=== PATIENT | male | born 1935 | race Caucasian/White ===

== ENCOUNTER 2017-09-20 07:49 | Inpatient (IN) | payer MEDICARE ==
[2017-09-20] MEDS ORDERED: NITROGLYCERIN SL TABS 0.4 MG TAB SUBLINGUAL STA ×3 (08:12)
[2017-09-20] MEDS ORDERED: ASPIRIN 81 MG PO STA (08:12)
--- NOTE | 2017-09-20 08:17 | ED ---
General Adult HPI - General Chief complaint: Chest Pain Stated complaint: Chest Pain Time Seen by Provider: 09/20/17 07:55 Source: patient, RN notes reviewed Mode of arrival: wheelchair Limitations: no limitations - History of Present Illness Initial comments: Patient is a pleasant 82-year-old male presenting to the emergency Department with chest discomfort. Onset of symptoms was yesterday however symptoms are very mild yesterday. Symptoms were worse around 4 AM today. Discomfort is currently 6/10. Discomfort is described as pressure in the chest. Patient states his right arm does feel a little bit funny. Patient has some mild associated dyspnea and mild nausea. No diaphoresis. Patient does have a history of heart attack years ago with somewhat similar symptoms. Patient does not exert himself much today however noticed no difference with movement. - Related Data Home Medications Medication Instructions Recorded Confirmed Aspirin EC [Ecotrin] 81 mg PO HS 05/31/14 09/20/17 Atorvastatin [Lipitor] 80 mg PO HS 05/31/14 09/20/17 Cholecalciferol [Vitamin D3] 2,000 unit PO DAILY 05/31/14 09/20/17 Omeprazole 20 mg PO DAILY 09/20/17 09/20/17 Allergies Allergy/AdvReac Type Severity Reaction Status Date / Time No Known Allergies Allergy Verified 09/20/17 08:33 Review of Systems ROS Statement: Those systems with pertinent positive or pertinent negative responses have been documented in the HPI. ROS Other: All systems not noted in ROS Statement are negative. Constitutional: Denies: fever Eyes: Denies: eye pain ENT: Denies: ear pain Respiratory: Denies: cough Cardiovascular: Reports: chest pain Endocrine: Denies: fatigue Gastrointestinal: Denies: abdominal pain Genitourinary: Denies: dysuria Musculoskeletal: Denies: back pain Skin: Denies: rash Neurological: Denies: weakness Past Medical History Past Medical History: Coronary Artery Disease (CAD), Cancer, Hyperlipidemia, Myocardial Infarction ([place]) Additional Past Medical History / Comment(s): prostate ca lung ca osteoporsis History of Any Multi-Drug Resistant Organisms: None Reported Past Surgical History: Heart Catheterization With Stent, Hernia Repair, Prostate Surgery Additional Past Surgical History / Comment(s): lung Past Psychological History: No Psychological Hx Reported Smoking Status: Former smoker Past Alcohol Use History: None Reported Past Drug Use History: None Reported General Exam Limitations: no limitations General appearance: alert, in no apparent distress Head exam: Present: atraumatic Eye exam: Present: normal appearance, PERRL ENT exam: Present: normal oropharynx Neck exam: Present: normal inspection Respiratory exam: Present: normal lung sounds bilaterally. Absent: chest wall tenderness Cardiovascular Exam: Present: regular rate, normal rhythm Expanded Peripheral pulses: 2+: Radial (R), Radial (L), Posterior Tibialis (R), Posterior Tibialis (L) GI/Abdominal exam: Present: soft. Absent: tenderness Extremities exam: Present: normal inspection. Absent: pedal edema, calf tenderness Neurological exam: Present: alert Psychiatric exam: Present: normal affect, normal mood Skin exam: Present: normal color Course Vital Signs 09/20/17 09/20/17 09/20/17 07:58 08:25 08:36 Temperature 97.7 F Pulse Rate 65 60 56 L Respiratory 16 18 18 Rate Blood Pressure 188/76 164/79 126/58 O2 Sat by Pulse 98 100 100 Oximetry - Reevaluation(s) Reevaluation #1: 09/20/17 09:19 Patient reexamined and near symptom-free following one nitroglycerin. Patient states his discomfort is less than 1. Patient and family are updated on results and plan. Case was discussed with practitioner vincenzo, who will consult with Dr. Haider. Dr. Pandya has been paged for admission for Dr. tate. EKG Findings - EKG Comments: EKG Findings:: Sinus bradycardia 55. MD 186. QRS 150. QT 494. QTC 472. Right axis. Right bundle branch block. No acute ST change. Medical Decision Making - Lab Data Result diagrams: 09/20/17 08:06 09/20/17 08:06 Lab Results 09/20/17 09/20/17 09/20/17 Range/Units 08:06 08:06 08:06 WBC 6.1 (3.8-10.6) k/uL RBC 3.88 L (4.30-5.90) m/uL Hgb 12.6 L (13.0-17.5) gm/dL Hct 37.6 L (39.0-53.0) % MCV 97.0 (80.0-100.0) fL MCH 32.5 (25.0-35.0) pg MCHC 33.6 (31.0-37.0) g/dL RDW 15.0 (11.5-15.5) % Plt Count 108 L (150-450) k/uL Neutrophils % 80 % Lymphocytes % 11 % Monocytes % 6 % Eosinophils % 1 % Basophils % 0 % Neutrophils # 4.9 (1.3-7.7) k/uL Lymphocytes # 0.7 L (1.0-4.8) k/uL Monocytes # 0.4 (0-1.0) k/uL Eosinophils # 0.0 (0-0.7) k/uL Basophils # 0.0 (0-0.2) k/uL PT (9.0-12.0) sec INR (<1.2) APTT (22.0-30.0) sec Sodium 141 (137-145) mmol/L Potassium 4.6 (3.5-5.1) mmol/L Chloride 104 (98-107) mmol/L Carbon Dioxide 28 (22-30) mmol/L Anion Gap 9 mmol/L BUN 15 (9-20) mg/dL Creatinine 0.85 (0.66-1.25) mg/dL Est GFR (MDRD) Af Amer >60 (>60 ml/min/1.73 sqM) Est GFR (MDRD) Non-Af >60 (>60 ml/min/1.73 sqM) Glucose 124 H (74-99) mg/dL Calcium 9.7 (8.4-10.2) mg/dL Magnesium 1.6 (1.6-2.3) mg/dL Total Bilirubin 1.0 (0.2-1.3) mg/dL AST 28 (17-59) U/L ALT 34 (21-72) U/L Alkaline Phosphatase 80 (38-126) U/L Total Creatine Kinase 98 (55-170) U/L CK-MB (CK-2) 5.4 H* (0.0-2.4) ng/mL CK-MB (CK-2) Rel Index 5.5 Troponin I 0.855 H* (0.000-0.034) ng/mL Total Protein 6.9 (6.3-8.2) g/dL Albumin 4.0 (3.5-5.0) g/dL 09/20/17 Range/Units 08:06 WBC (3.8-10.6) k/uL RBC (4.30-5.90) m/uL Hgb (13.0-17.5) gm/dL Hct (39.0-53.0) % MCV (80.0-100.0) fL MCH (25.0-35.0) pg MCHC (31.0-37.0) g/dL RDW (11.5-15.5) % Plt Count (150-450) k/uL Neutrophils % % Lymphocytes % % Monocytes % % Eosinophils % % Basophils % % Neutrophils # (1.3-7.7) k/uL Lymphocytes # (1.0-4.8) k/uL Monocytes # (0-1.0) k/uL Eosinophils # (0-0.7) k/uL Basophils # (0-0.2) k/uL PT 10.1 (9.0-12.0) sec INR 1.0 (<1.2) APTT 23.8 (22.0-30.0) sec Sodium (137-145) mmol/L Potassium (3.5-5.1) mmol/L Chloride (98-107) mmol/L Carbon Dioxide (22-30) mmol/L Anion Gap mmol/L BUN (9-20) mg/dL Creatinine (0.66-1.25) mg/dL Est GFR (MDRD) Af Amer (>60 ml/min/1.73 sqM) Est GFR (MDRD) Non-Af (>60 ml/min/1.73 sqM) Glucose (74-99) mg/dL Calcium (8.4-10.2) mg/dL Magnesium (1.6-2.3) mg/dL Total Bilirubin (0.2-1.3) mg/dL AST (17-59) U/L ALT (21-72) U/L Alkaline Phosphatase (38-126) U/L Total Creatine Kinase (55-170) U/L CK-MB (CK-2) (0.0-2.4) ng/mL CK-MB (CK-2) Rel Index Troponin I (0.000-0.034) ng/mL Total Protein (6.3-8.2) g/dL Albumin (3.5-5.0) g/dL Critical Care Time Critical Care Time: Yes Total Critical Care Time: 32 Disposition Clinical Impression: NSTEMI (non-ST elevation myocardial infarction) Disposition: ADMITTED IP TO THIS HOSP Condition: Serious Referrals: Jina Mcknight MD [Primary Care Provider] - 1-2 days Decision Time: 09:20
[2017-09-20 08:24] LABS: Basophils % (A) 0 %; CH 32.6; CHCM 33.8; Eosinophils % (A) 1 %; HCT 37.6 % (39.0-53.0); HDW 2.85; HGB 12.6 gm/dL (13.0-17.5); Luc % (Auto) 2; Lymphocytes # (A) 0.7 k/uL (1.0-4.8); Lymphocytes % (A) 11 %; MCH 32.5 pg (25.0-35.0); MCHC 33.6 g/dL (31.0-37.0); Mean Platelet Volume 7.5; Monocytes # (A) 0.4 k/uL (0-1.0); Monocytes % (A) 6 %; Neutrophils # (A) 4.9 k/uL (1.3-7.7); Neutrophils % (A) 80 %; RBC 3.88 m/uL (4.30-5.90); WBC 6.1 k/uL (3.8-10.6); WBC (Perox) 6.47
--- NOTE | 2017-09-20 08:26 | XR ---
EXAMINATION TYPE: XR chest 2V DATE OF EXAM: 09/20/2017 COMPARISON: 12/15/2011 INDICATION: Chest pain, chest pressure x24 hours TECHNIQUE: Frontal and lateral views of the chest are obtained. FINDINGS: The heart size is normal. The pulmonary vasculature is normal. The lungs are clear. There is a small surgical clip in the upper mediastinum. EKG leads overlie the chest. IMPRESSION: 1. No acute pulmonary process.
[2017-09-20 08:36] LABS: ALT 34 U/L (21-72); AST 28 U/L (17-59); Alkaline Phosphatase 80 U/L (38-126); Anion Gap 9 mmol/L; Blood Urea Nitrogen 15 mg/dL (9-20); Calcium 9.7 mg/dL (8.4-10.2); Carbon Dioxide 28 mmol/L (22-30); Chloride 104 mmol/L (98-107); Glucose 124 mg/dL (74-99); Magnesium 1.6 mg/dL (1.6-2.3); Non-African American GFR(MDRD) >60 (>60 ml/min/1.73 sqM); Potassium 4.6 mmol/L (3.5-5.1); Sodium 141 mmol/L (137-145); Total Protein 6.9 g/dL (6.3-8.2)
[2017-09-20 08:46] LABS: Partial Thromboplastin Time 23.8 sec (22.0-30.0); Prothrombin Time 10.1 sec (9.0-12.0)
[2017-09-20 09:11] LABS: Creatine Kinase MB 5.4 ng/mL (0.0-2.4); Troponin I 0.855 ng/mL (0.000-0.034)
[2017-09-20] MEDS ORDERED: HEPARIN SODIUM,PORCINE 5,000 UNIT/ML 1 ML VIAL IV PRN (09:12)
[2017-09-20] MEDS ORDERED: HEPARIN SODIUM,PORCINE 5,000 UNIT/ML 1 ML VIAL IV ONE (09:12)
[2017-09-20] MEDS ORDERED: NITROGLYCERIN SL TABS 0.4 MG TAB SUBLINGUAL PRN (09:16)
[2017-09-20] MEDS: HEPARIN SODIUM,PORCINE/D5W PMX 25,000 UNIT in DEXTROSE/WATER 1 500ML.BAG IV SCH (09:26)
--- NOTE | 2017-09-20 10:50 | ECHOF ---
Referral Reason:nstemi MEASUREMENTS -------- HEIGHT: 152.4 cm WEIGHT: 73.5 kg BP: IVSd: 0.9 cm (0.6 - 1.1) LVIDd: 4.9 cm (3.9 - 5.3) LVPWd: 1.0 cm (0.6 - 1.1) IVSs: 1.1 cm LVIDs: 3.5 cm LVPWs: 1.1 cm LA Diam: 2.9 cm (2.7 - 3.8) LAESV Index (A-L): 31.59 ml/m MV EXCURSION: 23.490 mm (> 18.000) MV EF SLOPE: 104 mm/s (70 - 150) EPSS: 0.7 cm MV E Clinton: 0.88 m/s MV DecT: 319 ms MV A [place]: 1.26 m/s MV E/A Ratio: 0.70 RAP: 5.00 mmHg RVSP: 41.55 mmHg FINDINGS -------- Sinus rhythm. This was a technically adequate study. The left ventricular size is normal. There is mild concentric left ventricular hypertrophy. Overa ll left ventricular systolic function is normal with, an EF between 55 - 60 %. The right ventricle is normal in size. LA is moderately dilated 34-39 ml/m2 The right atrial size is normal. There is mild aortic valve sclerosis. The mitral valve leaflets are mildly thickened. Moderate mitral regurgitation is present. There i s mild mitral valve prolapse. Mild tricuspid regurgitation present. There is mild pulmonary hypertension. The right ventricular systolic pressure, as measured by Doppler, is 41.55mmHg. Trace/mild (physiologic) pulmonic regurgitation. The aortic root size is normal. There is no pericardial effusion. CONCLUSIONS -------- 1. Sinus rhythm. 2. This was a technically adequate study. 3. There is mild concentric left ventricular hypertrophy. 4. Overall left ventricular systolic function is normal with, an EF between 55 - 60 %. 5. LA is moderately dilated 34-39 ml/m2 6. There is mild aortic valve sclerosis. 7. The mitral valve leaflets are mildly thickened. 8. Moderate mitral regurgitation is present. 9. There is mild mitral valve prolapse. 10. Mild tricuspid regurgitation present. 11. There is mild pulmonary hypertension. 12. Trace/mild (physiologic) pulmonic regurgitation. 13. The aortic root size is normal. 14. There is no pericardial effusion. SILO MAN: Katherin Carpenter RDCS
--- NOTE | 2017-09-20 12:08 | P.CRDCN ---
History of Present Illness Consult date: 09/20/17 Chief complaint: Chest discomfort History of present illness: This is an 10-year-old gentleman who sees Dr. Parker as an outpatient with a history of coronary artery disease and prior stenting was performed out of the town at the clinic on in 2003 with unknown details at this point, dyslipidemia, carotid disease and status post left carotid endarterectomy, presented to the hospital complaining of chest discomfort. He was in his usual state of health until this morning when he woke up from sleep complaining of chest discomfort as a pressure across the chest without any radiations to the arm or neck or shoulders but it was associated with shortness of breath. No sweating. No dizziness or lightheadedness. And no syncope. The discomfort lasted until the patient arrived to the emergency room where he was given nitroglycerin with improvement in the symptoms. Since then he has been pain-free. The EKG showed sinus rhythm with RBBB. The first set of cardiac enzyme came in to be slightly abnormal with abnormal CK-MB and troponin. When the patient arrived to the emergency room he was hypertensive and bradycardic. He is not on any blood pressure medications at home. Currently the patient is on aspirin as well as heparin. I will continue that. I am going to add VIV inhibitor to the current medical treatment. Follow-up with the serial cardiac enzymes and follow-up with the echocardiogram. Past Medical History Past Medical History: Coronary Artery Disease (CAD), Cancer, Hyperlipidemia, Myocardial Infarction ([place]) Additional Past Medical History / Comment(s): Prostate cancer with radiation and hormone treatment, esophageal cancer with surgery, R upper lobe lung cancer with surgery, L carotid artery disease-with surgery, osteoporosis in the past, mild mitral insufficiency/bacterial endocarditis. Last Myocardial Infarction Date:: 2001 History of Any Multi-Drug Resistant Organisms: None Reported Past Surgical History: Heart Catheterization With Stent, Hernia Repair, Prostate Surgery Additional Past Surgical History / Comment(s): 12/29/02 PCI with [address] Morgan in [facility], 2002 L caratid endartectomy, 2009 R upper lobectomy, 2010 esophagectomy at [facility], 2010 hernia repair, EGD/colonoscopy, bilateral cataract removal with lens implants. Past Anesthesia/Blood Transfusion Reactions: No Reported Reaction Date of Last Stent Placement:: 2001 Smoking Status: Former smoker - Past Family History Mother Family Medical History: No Reported History Additional Family Medical History / Comment(s): Mother was healthy and lived to be 92 yrs old. Father Additional Family Medical History / Comment(s): Father left home when pt was 6 yrs old. Pt does know that father was an alcoholic and at the age of 59yrs. Medications and Allergies Home Medications Medication Instructions Recorded Confirmed Type Aspirin EC [Ecotrin] 81 mg PO HS 05/31/14 09/20/17 History Atorvastatin [Lipitor] 80 mg PO HS 05/31/14 09/20/17 History Cholecalciferol [Vitamin D3] 2,000 unit PO DAILY 05/31/14 09/20/17 History Omeprazole 20 mg PO DAILY 09/20/17 09/20/17 History Allergies Allergy/AdvReac Type Severity Reaction Status Date / Time No Known Allergies Allergy Verified 09/20/17 08:33 Physical Exam Vitals: Vital Signs Temp Pulse Pulse Resp BP BP Pulse Ox 09/20/17 11:24 56 L 18 09/20/17 10:00 97.4 F L 56 L 18 161/77 100 09/20/17 09:38 98 F 57 L 18 142/88 100 09/20/17 08:36 56 L 18 126/58 100 09/20/17 08:25 60 18 164/79 100 09/20/17 07:58 97.7 F 65 16 188/76 98 Intake and Output 09/19/17 09/20/17 09/20/17 22:59 06:59 14:59 Other: Weight 73.482 kg Patient Weight 09/21/17 06:59 Weight 73.482 kg - Constitutional General appearance: no acute distress - Respiratory Respiratory: bilateral: CTA - Cardiovascular Rhythm: regular Heart sounds: normal: S1, S2 Results 09/20/17 08:06 09/20/17 08:06 Cardiac Enzymes 09/20/17 09/20/17 Range/Units 08:06 08:06 AST 28 (17-59) U/L CK-MB (CK-2) 5.4 H* (0.0-2.4) ng/mL Troponin I 0.855 H* (0.000-0.034) ng/mL Coagulation 09/20/17 Range/Units 08:06 PT 10.1 (9.0-12.0) sec APTT 23.8 (22.0-30.0) sec CBC 09/20/17 Range/Units 08:06 WBC 6.1 (3.8-10.6) k/uL RBC 3.88 L (4.30-5.90) m/uL Hgb 12.6 L (13.0-17.5) gm/dL Hct 37.6 L (39.0-53.0) % Plt Count 108 L (150-450) k/uL Comprehensive Metabolic Panel 09/20/17 Range/Units 08:06 Sodium 141 (137-145) mmol/L Potassium 4.6 (3.5-5.1) mmol/L Chloride 104 (98-107) mmol/L Carbon Dioxide 28 (22-30) mmol/L BUN 15 (9-20) mg/dL Creatinine 0.85 (0.66-1.25) mg/dL Glucose 124 H (74-99) mg/dL Calcium 9.7 (8.4-10.2) mg/dL AST 28 (17-59) U/L ALT 34 (21-72) U/L Alkaline Phosphatase 80 (38-126) U/L Total Protein 6.9 (6.3-8.2) g/dL Albumin 4.0 (3.5-5.0) g/dL Current Medications Generic Name Dose Route Start Last Admin Trade Name Williamq PRN Reason Stop Dose Admin Aspirin 325 mg 09/21/17 09:00 Aspirin PO DAILY [facility] Heparin Sodium (Porcine) 0 unit 09/20/17 09:12 Heparin IV PER PROTOCOL PRN Low PTT Protocol Heparin Sodium/Dextrose 25,000 500 mls @ 17.63 mls/hr 09/20/17 09:15 09:26 unit/ IV Solution IV 12 units/kg/hr .Q24H NASREEN 17.63 mls/hr Protocol Administration 12 UNITS/KG/HR Nitroglycerin 1 inch 09/20/17 12:00 Nitro-Bid Oint TOPICAL Q6HR [facility] Nitroglycerin 0.4 mg 09/20/17 09:16 Nitrostat SUBLINGUAL Q5M PRN Chest Pain Intake and Output 09/19/17 09/20/17 09/20/17 22:59 06:59 14:59 Other: Weight 73.482 kg Patient Weight 09/21/17 06:59 Weight 73.482 kg 09/20/17 08:06 09/20/17 08:06 Assessment and Plan Assessment: This is a pleasant 82-year-old gentleman was known to have CAD and prior stenting with unknown details, and dyslipidemia, presented to the hospital with a chest discomfort and ruled in for acute non-STEMI. I will follow-up with the serial cardiac enzymes and follow-up with the echocardiogram. Add VIV inhibitor to the current medical treatment. Continue the aspirin and heparin for now. If the serial Cardiac enzymes are trending up I will consider proceeding with a heart catheterization by Dr. Parker.
[2017-09-20] MEDS: NITROGLYCERIN OINT 1 INCH/GM PACKET TOPICAL SCH ×3 (12:36→23:37)
--- NOTE | 2017-09-20 13:41 | P.HPIM ---
History of Present Illness H&P Date: 09/20/17 Chief Complaint: chest pain this is a 82-year-old gentleman with past medical history noted below significant for coronary artery disease with prior stent placement in 2003 who presented to the emergency room with worsening chest pain. Patient said that his pain started all of a sudden when he woke up this morning. He described the pain as pressure-like across his chest without radiation to the neck or arm. He said the pain was 8 out of 10 in severity. He was concerned and decided to come to the emergency room. In the emergency room, 12-lead EKG showed no acute ischemic changes. Initial troponin was elevated at 0.85. Patient was given a sublingual nitro that resolved his pain. He is currently admitted to telemetry floor and was seen and evaluated by cardiology. He denies any chest pain at this time. Review of Systems Review of system: 14 points review of systems were obtained and were negative except to what were mentioned in the HPI. 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 Last Myocardial Infarction Date:: 2001 History of Any Multi-Drug Resistant Organisms: None Reported Past Surgical History: Heart Catheterization With Stent, Hernia Repair, Prostate Surgery Additional Past Surgical History / Comment(s): 12/29/02 PCI with [address] Morgan in [facility], 2002 L caratid endartectomy, 2009 R upper lobectomy, 2010 esophagectomy at [facility], 2010 hernia repair, EGD/colonoscopy, bilateral cataract removal with lens implants. Past Anesthesia/Blood Transfusion Reactions: No Reported Reaction Date of Last Stent Placement:: 2001 Smoking Status: Former smoker - Past Family History Mother Family Medical History: No Reported History Additional Family Medical History / Comment(s): Mother was healthy and lived to be 92 yrs old. Father Additional Family Medical History / Comment(s): Father left home when pt was 6 yrs old. Pt does know that father was an alcoholic and at the age of 59yrs. Medications and Allergies Home Medications Medication Instructions Recorded Confirmed Type Aspirin EC [Ecotrin] 81 mg PO HS 05/31/14 09/20/17 History Atorvastatin [Lipitor] 80 mg PO HS 05/31/14 09/20/17 History Cholecalciferol [Vitamin D3] 2,000 unit PO DAILY 05/31/14 09/20/17 History Omeprazole 20 mg PO DAILY 09/20/17 09/20/17 History Allergies Allergy/AdvReac Type Severity Reaction Status Date / Time No Known Allergies Allergy Verified 09/20/17 08:33 Physical Exam Vitals: Vital Signs Temp Pulse Pulse Resp BP BP Pulse Ox 09/20/17 11:24 56 L 18 09/20/17 10:00 97.4 F L 56 L 18 161/77 100 09/20/17 09:38 98 F 57 L 18 142/88 100 09/20/17 08:36 56 L 18 126/58 100 09/20/17 08:25 60 18 164/79 100 09/20/17 07:58 97.7 F 65 16 188/76 98 Intake and Output 09/19/17 09/20/17 09/20/17 22:59 06:59 14:59 Output Total 400 Balance -400 Output: Urine 400 Other: Weight 73.482 kg Patient Weight 09/21/17 06:59 Weight 73.482 kg General: The patient is awake and alert, in no distress Eye: there is normal conjunctiva bilaterally. Neck: The neck is supple, there is no JVD. Cardiovascular: Normal S1-S2, no S3-S4, no murmurs. Respiratory: Lungs clear to auscultation bilaterally Gastrointestinal: Abdomen is soft, nontender Musculoskeletal: There is no pedal edema. Neurological:. Speech is normal. Skin: Skin is warm and dry Results CBC & Chem 7: 09/20/17 08:06 09/20/17 08:06 Labs: Abnormal Lab Results - Last 24 Hours (Table) 09/20/17 09/20/17 09/20/17 Range/Units 08:06 08:06 08:06 RBC 3.88 L (4.30-5.90) m/uL Hgb 12.6 L (13.0-17.5) gm/dL Hct 37.6 L (39.0-53.0) % Plt Count 108 L (150-450) k/uL Lymphocytes # 0.7 L (1.0-4.8) k/uL Glucose 124 H (74-99) mg/dL CK-MB (CK-2) 5.4 H* (0.0-2.4) ng/mL Troponin I 0.855 H* (0.000-0.034) ng/mL Thrombosis Risk Factor Assmnt - Choose All That Apply Any of the Below Risk Factors Present?: Yes Each Factor Represents 1 point: Acute MD Other Risk Factors: Yes Each Risk Factor Represents 2 Points: Malignancy Each Risk Factor Represents 3 Points: Age 75 years or older Other congenital or acquired thrombophilia - If yes, enter type in comment: No Thrombosis Risk Factor Assessment Total Risk Factor Score: 6 Thrombosis Risk Factor Assessment Level: High Risk Assessment and Plan Assessment: 1. Non-ST elevation [place] 2. Sinus bradycardia with known underlying right bundle branch block 3. Essential hypertension 4. Mixed hyperlipidemia Today, I reviewed his medication list and lab work results. Continue medical management with aspirin, IV heparin, Lipitor, and lisinopril.no beta [place] at this time given bradycardia. Echocardiogram showed preserved ejection fraction of 55-60%. No significant valvular abnormalities or wall motion abnormalities. Awaiting repeat troponin level and further recommendation by cardiology.
[2017-09-20 16:11] LABS: Creatine Kinase MB 6.8 ng/mL (0.0-2.4); Troponin I 1.18 ng/mL (0.000-0.034)
[2017-09-20] MEDS: ATORVASTATIN 80 MG TAB PO SCH (20:17)
[2017-09-20 21:33] LABS: Creatine Kinase MB 5.1 ng/mL (0.0-2.4); Troponin I 0.955 ng/mL (0.000-0.034)
[2017-09-21] MEDS: NITROGLYCERIN OINT 1 INCH/GM PACKET TOPICAL SCH ×3 (05:12→17:26)
[2017-09-21] MEDS: PANTOPRAZOLE 40 MG TABLET PO SCH (06:11)
[2017-09-21 06:30] LABS: Basophils % (A) 1 %; CH 33.1; CHCM 34.3; Eosinophils # (A) 0.1 k/uL (0-0.7); Eosinophils % (A) 1 %; HCT 36.1 % (39.0-53.0); HDW 3.05; HGB 12.3 gm/dL (13.0-17.5); Luc # (Auto) 0.07; Luc % (Auto) 2; Lymphocytes # (A) 0.7 k/uL (1.0-4.8); Lymphocytes % (A) 15 %; MCH 32.9 pg (25.0-35.0); MCHC 33.9 g/dL (31.0-37.0); Mean Platelet Volume 7.7; Monocytes # (A) 0.4 k/uL (0-1.0); Monocytes % (A) 7 %; Neutrophils # (A) 3.7 k/uL (1.3-7.7); Neutrophils % (A) 75 %; RBC 3.72 m/uL (4.30-5.90); WBC 4.9 k/uL (3.8-10.6)
[2017-09-21 06:37] LABS: INR 1.1 (<1.2); Partial Thromboplastin Time 43.5 sec (22.0-30.0); Prothrombin Time 10.8 sec (9.0-12.0)
[2017-09-21 06:49] LABS: Manual Review Performed
[2017-09-21 07:07] LABS: Cholesterol 134 mg/dL (<200); HDL Cholesterol 75 mg/dL (40-60)
[2017-09-21] MEDS ORDERED: NITROGLYCERIN SL TABS 0.4 MG TAB SUBLINGUAL PRN (07:39)
[2017-09-21] MEDS ORDERED: ALPRAZolam 0.25 MG TAB PO PRN (07:39)
[2017-09-21] MEDS ORDERED: ALPRAZolam 0.5 MG TAB PO PRN (07:39)
[2017-09-21] MEDS ORDERED: ASPIRIN 325 MG TAB PO STA (07:39)
[2017-09-21] MEDS ORDERED: SODIUM CHLORIDE 0.9% 1,000 ML in EMPTY BAG 1 BAG IV ONE (07:39)
[2017-09-21] MEDS ORDERED: ATORVASTATIN 80 MG TAB PO STA (07:39)
[2017-09-21] MEDS: LISINOPRIL 5 MG TAB PO SCH (07:57)
[2017-09-21] MEDS: CHOLECALCIFEROL 1,000 UNIT TAB PO SCH (07:57)
[2017-09-21] MEDS ORDERED: IV FLUID CONTINUATION 1,000 ML IV ONE (08:27)
[2017-09-21] MEDS ORDERED: diphenhydrAMINE 50 MG/ML 1 ML VIAL ONE (08:42)
[2017-09-21] MEDS ORDERED: fentaNYL (PF) 50 MCG/ML 2 ML AMP ONE (08:46)
[2017-09-21] MEDS ORDERED: fentaNYL (PF) 50 MCG/ML 2 ML AMP IVP ONE (08:47)
[2017-09-21] MEDS ORDERED: LIDOCAINE 2% INJ 20 MG/ML SQ ONE (08:49)
[2017-09-21] MEDS ORDERED: ASPIRIN 325 MG TAB PO SCH (09:00)
[2017-09-21] MEDS ORDERED: IOHEXOL 350 MG/ML 125ML BOTTLE INJ ONE (09:16)
[2017-09-21] MEDS ORDERED: RX INFO: IV CONTRAST WAS GIVEN 1 EACH MISC MISCELLANE PRN (10:02)
[2017-09-21] MEDS: SODIUM CHLORIDE 0.9% 1,000 ML IV SCH (10:15)
--- NOTE | 2017-09-21 13:28 | P.PN ---
Subjective Progress Note Date: 09/21/17 Patient denies any chest pain today. He underwent left heart catheterization that was reported unremarkable. Objective - Vital Signs Vital signs: Vital Signs Temp 97 F L 09/21/17 08:00 Pulse 65 09/21/17 10:47 Resp 16 09/21/17 10:47 BP 114/67 09/21/17 10:47 Pulse Ox 98 09/21/17 10:47 Intake & Output 09/20/17 09/21/17 09/21/17 18:59 06:59 18:59 Intake Total 376.694 75 Output Total 500 475 450 Balance -500 -98.306 -375 Weight 73.482 kg 68 kg Intake: IV 75 Intake, IV Titration 376.694 Amount Heparin Sodium,Porcine/ 376.694 D5w Pmx 25,000 unit In Dextrose/Water 1 500ml. bag @ 12 UNITS/KG/HR 17. 63 mls/hr IV .Q24H NASRE[facility] Rx #:[id number] Oral 0 Output: Urine 500 475 450 Other: Voiding Method Urinal Toilet Urinal Urinal # Voids 1 - Exam General: The patient is awake and alert, in no distress Eye: there is normal conjunctiva bilaterally. Neck: The neck is supple, there is no JVD. Cardiovascular: Normal S1-S2, no S3-S4, no murmurs. Respiratory: Lungs clear to auscultation bilaterally Gastrointestinal: Abdomen is soft, nontender Musculoskeletal: There is no pedal edema. Neurological:. Speech is normal. Skin: Skin is warm and dry - Labs CBC & Chem 7: 09/21/17 06:05 09/20/17 08:06 Labs: Abnormal Lab Results - Last 24 Hours (Table) 09/20/17 09/20/17 09/20/17 Range/Units 15:16 15:16 20:33 RBC (4.30-5.90) m/uL Hgb (13.0-17.5) gm/dL Hct (39.0-53.0) % Plt Count (150-450) k/uL Lymphocytes # (1.0-4.8) k/uL APTT 54.9 H (22.0-30.0) sec CK-MB (CK-2) 6.8 H* 5.1 H* (0.0-2.4) ng/mL Troponin I 1.180 H* 0.955 H* (0.000-0.034) ng/mL HDL Cholesterol (40-60) mg/dL 09/21/17 09/21/17 09/21/17 Range/Units 06:05 06:05 06:05 RBC 3.72 L (4.30-5.90) m/uL Hgb 12.3 L (13.0-17.5) gm/dL Hct 36.1 L (39.0-53.0) % Plt Count 99 L (150-450) k/uL Lymphocytes # 0.7 L (1.0-4.8) k/uL APTT 43.5 H (22.0-30.0) sec CK-MB (CK-2) (0.0-2.4) ng/mL Troponin I (0.000-0.034) ng/mL HDL Cholesterol 75 H (40-60) mg/dL Assessment and Plan Assessment: 1. Non-ST elevation [place] 2. Sinus bradycardia with known underlying right bundle branch block 3. Essential hypertension 4. Mixed hyperlipidemia Today, I reviewed his medication list and lab work results. Continue medical management with aspirin, Lipitor, and lisinopril.no beta berlin at this time given bradycardia. Echocardiogram showed preserved ejection fraction of 55-60% . No significant valvular abnormalities or wall motion abnormalities. Patient underwent left heart catheterization showing no significant coronary artery disease awaiting formal report. appreciate cardiology recommendations. Continue telemetry monitoring. Anticipate discharge home tomorrow.
[2017-09-21] MEDS: HEPARIN SODIUM,PORCINE/D5W PMX 25,000 UNIT in DEXTROSE/WATER 1 500ML.BAG IV SCH (14:34)
[2017-09-21] MEDS: ATORVASTATIN 80 MG TAB PO SCH (20:08)
[2017-09-21] MEDS ORDERED: ASPIRIN 81 MG PO SCH (21:00)
[2017-09-22] MEDS: NITROGLYCERIN OINT 1 INCH/GM PACKET TOPICAL SCH ×2 (00:19→05:06)
[2017-09-22] MEDS: SODIUM CHLORIDE 0.9% 1,000 ML IV SCH (00:21)
[2017-09-22] MEDS: PANTOPRAZOLE 40 MG TABLET PO SCH (06:30)
[2017-09-22 06:36] LABS: Basophils % (A) 1 %; CHCM 34.2; Eosinophils # (A) 0.1 k/uL (0-0.7); Eosinophils % (A) 3 %; HCT 35.4 % (39.0-53.0); HDW 3.03; HGB 11.8 gm/dL (13.0-17.5); Luc # (Auto) 0.07; Luc % (Auto) 2; Lymphocytes # (A) 0.7 k/uL (1.0-4.8); Lymphocytes % (A) 16 %; MCH 32.3 pg (25.0-35.0); MCHC 33.3 g/dL (31.0-37.0); MCV 97.2 fL (80.0-100.0); Mean Platelet Volume 7.1; Monocytes # (A) 0.4 k/uL (0-1.0); Monocytes % (A) 9 %; Neutrophils # (A) 3.1 k/uL (1.3-7.7); Neutrophils % (A) 70 %; RBC 3.65 m/uL (4.30-5.90); WBC 4.4 k/uL (3.8-10.6); WBC (Perox) 4.46
[2017-09-22 06:39] LABS: Prothrombin Time 10.5 sec (9.0-12.0)
[2017-09-22 06:44] LABS: Anion Gap 6 mmol/L; Blood Urea Nitrogen 14 mg/dL (9-20); Calcium 9.1 mg/dL (8.4-10.2); Carbon Dioxide 27 mmol/L (22-30); Chloride 108 mmol/L (98-107); Glucose 102 mg/dL (74-99); Non-African American GFR(MDRD) >60 (>60 ml/min/1.73 sqM); Potassium 4.4 mmol/L (3.5-5.1); Sodium 141 mmol/L (137-145)
[2017-09-22 08:35] VITALS: RESP 16
[2017-09-22] MEDS: HEPARIN SODIUM,PORCINE/D5W PMX 25,000 UNIT in DEXTROSE/WATER 1 500ML.BAG IV SCH (08:39)
[2017-09-22] MEDS: LISINOPRIL 5 MG TAB PO SCH (08:40)
[2017-09-22] MEDS: CHOLECALCIFEROL 1,000 UNIT TAB PO SCH (08:40)
--- NOTE | 2017-09-22 11:04 | P.PN ---
Subjective Progress Note Date: 09/22/17 Principal diagnosis: Chest pain This pleasant 82-year-old gentleman who follows regularly with Dr. Murcia as an outpatient, he has a known history of coronary artery disease with prior stent placement, hyperlipidemia, carotid artery disease, presented to the hospital with symptoms of chest discomfort and ruled in for non-Q-wave myocardial infarction. Echocardiogram with Doppler study was performed which revealed an ejection fraction of 55-60%, moderate mitral regurgitation is also present. Patient did undergo cardiac catheterization yesterday by Dr. Parker which did not reveal any significant obstructive coronary artery disease. He was seen and examined this morning, denies any chest pain, breathing overall has been stable. Blood pressure 124/56, heart rate in the 50s. Hemoglobin 11.8 , potassium 4.4, BUN 14, creatinine 0.6. Objective - Vital Signs Vital signs: Vital Signs Temp 97.6 F 09/22/17 08:00 Pulse 71 09/22/17 08:00 Resp 16 09/22/17 08:00 BP 124/55 09/22/17 08:00 Pulse Ox 98 09/22/17 08:00 Intake & Output 09/21/17 09/22/17 09/22/17 18:59 06:59 18:59 Intake Total 75 600 200 Output Total 750 Balance -675 600 200 Weight 71 kg Intake: IV 75 Oral 600 200 Output: Urine 750 Other: Voiding Method Urinal Urinal # Voids 1 1 0 - Exam PHYSICAL EXAMINATION: HEENT: Head is atraumatic, normocephalic. Pupils equal, round. Neck is supple. There is no elevated jugular venous pressure. HEART EXAMINATION: Heart S1 S2 1 systolic murmur is heard CHEST EXAMINATION: Lungs are clear to auscultation and precussion. No chest wall tenderness is noted on palpation or with deep breathing. ABDOMEN: Soft, nontender. Bowel sounds are heard. No organomegaly noted. Right groin soft, no evidence of any hematoma. EXTREMITIES: 2+ peripheral pulses with no evidence of peripheral edema and no calf tenderness noted]. NEUROLOGIC [patient is awake, alert and oriented -3.] . - Labs CBC & Chem 7: 09/22/17 06:04 09/22/17 06:04 Labs: Abnormal Lab Results - Last 24 Hours (Table) 09/22/17 09/22/17 Range/Units 06:04 06:04 RBC 3.65 L (4.30-5.90) m/uL Hgb 11.8 L (13.0-17.5) gm/dL Hct 35.4 L (39.0-53.0) % Plt Count 105 L (150-450) k/uL Lymphocytes # 0.7 L (1.0-4.8) k/uL Chloride 108 H (98-107) mmol/L Glucose 102 H (74-99) mg/dL Assessment and Plan Plan: Assessment and plan #1 Non Q wave myocardial infarction, status post cardiac catheterization which revealed nonobstructive coronary artery disease. Echocardiogram with Doppler study was performed which revealed a normal left ventricular systolic function with moderate mitral regurgitation. #2 known history of coronary artery disease with prior stent placement #3 hyperlipidemia #4 history of carotid artery disease Plan Patient may be able to be discharged home today from cardiology's perspective. He is not currently on a beta berlin because of bradycardia. A follow-up appointment will be made with Dr. Parker in the office post discharge. He will be discharged home on aspirin 81 mg daily, Lipitor 80 mg daily and lisinopril 5 mg daily, DNP note has been reviewed, I agree with a documented findings and plan of care. Patient was seen and examined.
[2017-09-22 11:21] VITALS: BP 131/61; PULSE 64; TEMP 96.8
--- NOTE | 2017-09-22 12:06 | P.DS ---
Providers Date of admission: 09/20/17 09:16 Expected date of discharge: 09/22/17 Attending physician: Marlene Luis Consults: 09/20/17 09:16 Consult Physician Urgent Consulting Provider: Chip Haider Consult Reason/Comments: nstemi Do you want consulting provider notified?: Already Contacted Primary care physician: Jina Mcknight [facility] Course: 1. Non-ST elevation [place] 2. Sinus bradycardia with known underlying right bundle branch block 3. Essential hypertension 4. Mixed hyperlipidemia Patient was seen and evaluated by cardiology. He underwent left heart catheterization with nonobstructive coronary artery disease. Plan to continue medical management. Echocardiogram showed preserved ejection fraction of 55-60% . No significant valvular abnormalities or wall motion abnormalities. Not a candidate for beta berlin given bradycardia. Patient will be discharged home in a stable condition. Patient Condition at Discharge: Fair Plan - Discharge Summary Discharge Rx Participant: No New Discharge Prescriptions: New Lisinopril [Zestril] 5 mg PO DAILY #30 tab Nitroglycerin Sl Tabs [Nitrostat] 0.4 mg SUBLINGUAL Q5M PRN #25 tab PRN Reason: Chest Pain Continue Cholecalciferol [Vitamin D3] 2,000 unit PO DAILY Aspirin EC [Ecotrin Low Dose] 81 mg PO HS Atorvastatin [Lipitor] 80 mg PO HS Omeprazole 20 mg PO DAILY Discharge Medication List Aspirin EC [Ecotrin Low Dose] 81 mg PO HS 05/31/14 [History] Atorvastatin [Lipitor] 80 mg PO HS 05/31/14 [History] Cholecalciferol [Vitamin D3] 2,000 unit PO DAILY 05/31/14 [History] Omeprazole 20 mg PO DAILY 09/20/17 [History] Lisinopril [Zestril] 5 mg PO DAILY #30 tab 09/22/17 [Rx] Nitroglycerin Sl Tabs [Nitrostat] 0.4 mg SUBLINGUAL Q5M PRN #25 tab 09/22/17 [Rx ] Follow up Appointment(s)/Referral(s): Jina Mcknight MD [Primary Care Provider] - 09/27/17 2:15 pm Hussein Parker MD [STAFF PHYSICIAN] - 09/29/17 10:45 am Patient Instructions/Handouts: *Surgery [facility] - After Heart Catheterization - Cancer Genetics Assistant Instructions, Heart Healthy Diet (DC), Bradycardia (DC) Discharge Disposition: HOME SELF-CARE
--- NOTE | 2017-09-25 12:47 | CC ---
CARDIAC CATHETERIZATION REPORT INDICATION: [id number] elevation MS. PROCEDURE NOTE: After obtaining informed consent, left heart catheterization and coronary angiogram are performed via the right femoral artery using standard Srinivas catheters. The patient tolerated the procedure well without any immediate complications. FINDINGS: HEMODYNAMICS: Left ventricular end-diastolic pressure is 16 mm. There is no significant gradient across the aortic valve. LEFT VENTRICULOGRAM: Left ventriculogram was not performed. ANGIOGRAPHIC DATA: 1. Left main coronary artery appears calcified with a mild atherosclerotic plaque, divides into left anterior descending coronary artery and circumflex coronary artery. 2. Circumflex coronary artery is normal. 3. LAD shows a mild nonobstructive CAD in its midportion. 4. The right coronary artery is a large dominant vessel that was stented previously and the stent appears patent. 5. CONCLUSIONS: 1. Patent stent within the right coronary artery. 2. Mild nonobstructive disease involving left anterior descending. 3. Heavily calcified coronaries including the left main. PLAN: I reviewed angiographic data with the patient and the plan at this stage is to treat him with optimal medical therapy. MMODL / IJN: [id number] /
== END 2017-09-22 12:47 | disposition home or self-care (01) | DRG 282 ==
LOC: EC 07:49 → 6SEL 09:16
PROVIDERS: ADMIT Internal Medicine; ATTEND Internal Medicine
PROC: 4A023N7 Measurement of Cardiac Sampling and Pressure, Left Heart, Percutaneous Approach (ICD-10-PCS; principal; 2017-09-20)
PROC: B2111ZZ Fluoroscopy of Multiple Coronary Arteries using Low Osmolar Contrast (ICD-10-PCS; principal; 2017-09-20)
DX: I21.4 Non-ST elevation (NSTEMI) myocardial infarction (principal); I34.0 Nonrheumatic mitral (valve) insufficiency; I45.10 Unspecified right bundle-branch block; I10 Essential (primary) hypertension; E78.2 Mixed hyperlipidemia; I25.10 Atherosclerotic heart disease of native coronary artery without angina pectoris; M81.0 Age-related osteoporosis without current pathological fracture; Z79.82 Long term (current) use of aspirin; Z79.899 Other long term (current) drug therapy; Z81.1 Family history of alcohol abuse and dependence; Z85.01 Personal history of malignant neoplasm of esophagus; Z85.118 Personal history of other malignant neoplasm of bronchus and lung; Z85.46 Personal history of malignant neoplasm of prostate; Z87.891 Personal history of nicotine dependence; Z95.5 Presence of coronary angioplasty implant and graft; Z96.1 Presence of intraocular lens; Z98.41 Cataract extraction status, right eye; Z98.42 Cataract extraction status, left eye
CPT/HCPCS: 36415; 71020; 80048; 80053; 80061; 82550; 82553; 83036; 83735; 84484; 85025; 85610; 85730; 93005; 93306; 93458; 96365; 96376; 99291

== ENCOUNTER → 2019-06-12 | Outpatient (CLI) | payer MEDICARE ==
--- NOTE | 2019-06-12 10:23 | XR ---
EXAMINATION TYPE: XR chest 2V DATE OF EXAM: 06/12/2019 COMPARISON: NONE HISTORY: History of right upper lobectomy in 2010 for lung cancer. Weakness for 6 months. TECHNIQUE: Frontal and lateral views of the chest are obtained. FINDINGS: Postsurgical change of a right upper lobectomy is seen, similar to the prior of 09/20/2017. Strand-like bibasilar atelectasis is also noted. Calcific left apical pleural-parenchymal scarring. Remainder the lungs are well aerated. Cardiomediastinal silhouette is within normal limits. No acute osseous pathology seen. Pulmonary hyperinflation with flattening of the diaphragms suggests underlyin g COPD. Moderate hiatal hernia is noted. IMPRESSION: 1. Postsurgical change of a right upper lobectomy. 2. Strand-like bibasilar atelectasis and underlying COPD. 3. Moderate hiatal hernia.
== END | disposition home or self-care (01) ==
LOC: RADXRMAIN 09:17
PROVIDERS: ATTEND Family Medicine
DX: C34.90 Malignant neoplasm of unspecified part of unspecified bronchus or lung (principal); J98.11 Atelectasis; J44.9 Chronic obstructive pulmonary disease, unspecified; K44.9 Diaphragmatic hernia without obstruction or gangrene; Z90.2 Acquired absence of lung [part of]; Z98.890 Other specified postprocedural states
CPT/HCPCS: 71046

== ENCOUNTER 2021-06-09 08:54 | Day surgery (SDC) | payer MEDICARE ==
[~2021-06-09 08:54] MED LIST: LACTATED RINGERS 1,000 ML IV SCH
[2021-06-09 10:25] VITALS: TEMP 97.4
[2021-06-09] MEDS ORDERED: LIDOCAINE 1% (10MG/ML) FOR IV START INTRADERMA ONE (10:25)
[2021-06-09] MEDS ORDERED: LIDOCAINE 1% INJ 10MG/ML (20 ML MDV) ONE (10:46)
[2021-06-09] MEDS ORDERED: PROPOFOL 10 MG/ML 20 ML VIAL IV ONE (10:46)
--- NOTE | 2021-06-09 10:55 | P.GSHP ---
History of Present Illness H&P Date: 06/09/21 Chief Complaint: Anemia, screening 85-year-old male here today for upper and lower endoscopy. Patient with diagnosis of anemia. No bowel complaints. Patient with previous weight loss. Patient has personal history of previous cancer and underwent esophagectomy in the past. Past Medical History Past Medical History: Coronary Artery Disease (CAD), Cancer, GERD/Reflux, Hyperlipidemia, Hypertension, Myocardial Infarction (DC) Additional Past Medical History / Comment(s): Prostate cancer with radiation and hormone treatment, esophageal cancer with surgery, R upper lobe lung cancer with surgery, L carotid artery disease-with surgery, osteoporosis in the past, mild mitral insufficiency/bacterial endocarditis. Last Myocardial Infarction Date:: 2001 History of Any Multi-Drug Resistant Organisms: None Reported Past Surgical History: Heart Catheterization, Heart Catheterization With Stent, Hernia Repair, Prostate Surgery Additional Past Surgical History / Comment(s): 12/29/02 PCI with [address] Morgan in [facility], 2002 L carotid endartectomy, 2009 R upper lobectomy, 2010 esophagectomy at [facility], 2010 hernia repair with mesh, EGD/colonoscopy, bilateral cataract removal with lens implants. Past Anesthesia/Blood Transfusion Reactions: No Reported Reaction Date of Last Stent Placement:: 2001 Smoking Status: Former smoker - Past Family History Mother Family Medical History: No Reported History Additional Family Medical History / Comment(s): Mother was healthy and lived to be 92 yrs old. Father Additional Family Medical History / Comment(s): Father left home when pt was 6 yrs old. Pt does know that father was an alcoholic and at the age of 59yrs. Medications and Allergies Home Medications Medication Instructions Recorded Confirmed Type Aspirin EC [Ecotrin Low Dose] 81 mg PO HS 05/31/14 06/09/21 History Atorvastatin [Lipitor] 80 mg PO HS 05/31/14 06/09/21 History Cholecalciferol [Vitamin D3 (25 2,000 unit PO DAILY 05/31/14 06/09/21 History Mcg = 1000 Iu)] Omeprazole 20 mg PO QAM 09/20/17 06/09/21 History Vitc/E/Zinc/Copper/Lutein/Zeax 1 each PO DAILY 06/05/21 06/09/21 History [Icaps Areds2 Tablet] lisinopriL [Zestril] 5 mg PO HS 06/05/21 06/09/21 History Allergies Allergy/AdvReac Type Severity Reaction Status Date / Time No Known Allergies Allergy Verified 06/09/21 10:22 Surgical - Exam Vital Signs Temp Pulse Resp BP Pulse Ox 97.4 F L 77 16 178/76 99 06/09/21 10:23 06/09/21 10:23 06/09/21 10:23 06/09/21 10:23 06/09/21 10:23 Physical exam: General: Malnourished appearing HEENT: Normocephalic, sclerae nonicteric Abdomen: Nontender, nondistended Extremities: No edema Neuro: Alert and oriented Assessment and Plan (1) Anemia Narrative/Plan: Will proceed with upper and lower endoscopy Current Visit: Yes Status: Acute Code(s): D64.9 - ANEMIA, UNSPECIFIED SNOMED Code(s): 662516380
--- NOTE | 2021-06-09 11:26 | P.PCN ---
Date of Procedure: 06/09/21 Procedure(s) Performed: PREOPERATIVE DIAGNOSIS: GERD, anemia, screening POSTOPERATIVE DIAGNOSIS: Minimal gastritis, PROCEDURE: 1. EGD with biopsy 2. Colonoscopy ANESTHESIA: MAC SURGEON: Kota Zelaya M.D. SPECIMENS: Antrum ENDOSCOPIC PROCEDURE: The patient was on the endoscopy table in the left decubit us position. The Olympus gastroscope was inserted into the oropharynx and passed under direct visualization to the region of the third portion of the duodenum. From that point the scope was slowly withdrawn inspecting all surfaces carefully. There were no neoplastic inflammatory or polypoid lesions throughout the duodenum. The pylorus was widely patent. The stomach was carefully inspected. There was minimal gastritis present. The patient had evidence of previous esophagectomy. The patient's anastomosis to the proximal esophagus was widely patent without inflammatory changes. The proximal esophagus appear normal. The patient was kept on the endoscopy table in the left decubitus position. The Olympus colonoscope was inserted into the anus and passed under direct visualization to the base of the cecum. The appendiceal orifice was visualized. From that point the scope was slowly withdrawn inspecting all surfaces carefully. There were no neoplastic inflammatory or polypoid lesions throughout the cecum, ascending, transverse, descending, sigmoid and rectum. The patient's prep was suboptimal however we were able to evacuate much of the stool. There was no visible diverticulosis seen. Digital rectal examination was normal. The patient was taken to the recovery room in stable condition per anesthesia guidelines. RECOMMENDATIONS: Resume diet. Continue anemia workup.
[2021-06-09 11:45] VITALS: BP 164/72; PULSE 70; RESP 18
== END 2021-06-09 12:01 | disposition home or self-care (01) ==
LOC: ORWHC2ENDO 08:54
PROVIDERS: ATTEND Surgery
DX: K29.50 Unspecified chronic gastritis without bleeding (principal); Z98.890 Other specified postprocedural states; I25.10 Atherosclerotic heart disease of native coronary artery without angina pectoris; I10 Essential (primary) hypertension; D64.9 Anemia, unspecified; K21.9 Gastro-esophageal reflux disease without esophagitis; E78.5 Hyperlipidemia, unspecified; I25.2 Old myocardial infarction; Z85.46 Personal history of malignant neoplasm of prostate; Z92.3 Personal history of irradiation; Z85.118 Personal history of other malignant neoplasm of bronchus and lung; Z85.01 Personal history of malignant neoplasm of esophagus; Z95.5 Presence of coronary angioplasty implant and graft; Z98.42 Cataract extraction status, left eye; Z98.41 Cataract extraction status, right eye; Z96.1 Presence of intraocular lens; Z87.891 Personal history of nicotine dependence; Z81.1 Family history of alcohol abuse and dependence; Z79.82 Long term (current) use of aspirin; Z79.899 Other long term (current) drug therapy
CPT/HCPCS: 88305; 45378; 43239; J2001; J2704

== ENCOUNTER → 2022-12-10 | Outpatient (CLI) | payer MEDICARE ==
[2022-12-10 11:11] LABS: African American GFR (CKD) >90 (>60 ml/min/1.73 sqM); Blood Urea Nitrogen 20 mg/dL (9-20); Non-African American GFR(CKD) 85 (>60 ml/min/1.73 sqM)
--- NOTE | 2022-12-10 14:29 | CT ---
EXAMINATION: CT ABDOMEN AND PELVIS WITH IV CONTRAST DATE OF EXAMINATION: 12/09/2022. COMPARISON: None available. INDICATION: Abnormal weight loss. PROCEDURE: Axial CT of the abdomen and pelvis was performed with contrast and sagittal and coronal reformatted images were performed. CT dose lowering techniques were used, to include: automated expos ure control, adjustment for patient size, and/or use of iterative reconstruction. FINDINGS: LOWER CHEST : There is mild emphysematous changes at the visualized lung bases. Scattered interstiti al changes are otherwise noted which are likely atelectasis or scarring. There are no pleural or alexis cardial effusions. Partially visualized severe coronary artery calcifications are noted. There is mil d to moderate global cardiomegaly. ABDOMEN: Liver and Biliary system: Normal. Adrenal glands: Normal. Kidneys and ureters: Normal. Spleen: Normal. Pancreas: Normal. Gallbladder: There are several gallstones within the gallbladder. Lymph nodes, Peritoneum and mesentery: There is no mesenteric or retroperitoneal lymphadenopathy. Gastrointestinal tract: There are no dilated loops of bowel or free intraperitoneal air. Is a mod erate sized sliding hiatal hernia. The appendix is not clearly seen with no secondary changes of appe ndicitis otherwise identified Aorta/IVC: There is severe atherosclerotic changes and vascular calcification throughout the abdomi nal aorta without evidence of aneurysmal dilation or dissection. IVC normal. Abdominal wall: Normal. PELVIS: Fluid: There is no free fluid in the pelvis. Lymph Nodes: There is no pelvic or inguinal lymphadenopathy.. Urinary bladder: Normal. BONES: There are no osseous destructive lesions.. ADDITIONAL SIGNIFICANT FINDINGS: None. IMPRESSION: 1. No acute process seen within the abdomen or pelvis. 2. Severe atherosclerotic changes of the abdominal aorta and coronary arteries. 3. Moderate-sized hiatal hernia. 4. Cholelithiasis. 5. Emphysema the visualized lung bases.
== END | disposition home or self-care (01) ==
LOC: RADCTMAIN 09:21
PROVIDERS: ATTEND Internal Medicine Gastroenterology
DX: I70.0 Atherosclerosis of aorta (principal); K44.9 Diaphragmatic hernia without obstruction or gangrene; K80.20 Calculus of gallbladder without cholecystitis without obstruction; J43.9 Emphysema, unspecified; R63.4 Abnormal weight loss
CPT/HCPCS: 82565; 84520; 74177; 36415; Q9967

== ENCOUNTER 2023-05-18 10:18 | Emergency (ER) | payer MEDICARE ==
[2023-05-18 10:24] VITALS: TEMP 98.2
[2023-05-18] MEDS ORDERED: GLUCAGON 1 MG/ML VIAL IVP STA ×2 (11:19→12:23)
[2023-05-18] MEDS ORDERED: METOCLOPRAMIDE 5 MG/ML 2 ML VIAL IVP STA (11:20)
[2023-05-18 11:48] LABS: Glucose,Whole Blood 98 mg/dL (70-110)
[2023-05-18 11:49] VITALS: RESP 18
[2023-05-18] MEDS ORDERED: NITROGLYCERIN SL TABS 0.4 MG TAB SUBLINGUAL STA (12:13)
[2023-05-18] MEDS ORDERED: SODIUM CHLORIDE 0.9% 500 ML 500 ML IV ONE ×2 (12:13→14:11)
--- NOTE | 2023-05-18 12:21 | ED ---
Skin/Abscess/FB HPI - General Chief complaint: Skin/Abscess/Foreign Body Stated complaint: foreign object Time Seen by Provider: 05/18/23 11:07 Source: patient, family, RN notes reviewed Mode of arrival: ambulatory Limitations: no limitations - History of Present Illness Initial comments: 87-year-old male presents emergency Department chief complaint of food stuck in his throat. Patient states he ate a steak yesterday morning states the piece stuck his not been able to swallow any liquids ever since. He states that he has to spit his own saliva well. Patient was seen at PCPs office and sent over for further evaluation. - Related Data Home Medications Medication Instructions Recorded Confirmed Vitc/E/Zinc/Copper/Lutein/Zeax 1 cap PO BID 06/05/21 05/18/23 [Icaps Areds2 Tablet] Alive Men's Multivitamin 2 tab PO DAILY 05/18/23 05/18/23 Digestive Enzymes 1 cap PO BID 05/18/23 05/18/23 Nitroglycerin Sl Tabs [Nitrostat] 0.4 mg SL Q5M PRN 05/18/23 05/18/23 Omeprazole 40 mg PO DAILY 05/18/23 05/18/23 Allergies Allergy/AdvReac Type Severity Reaction Status Date / Time No Known Allergies Allergy Verified 05/18/23 12:25 Review of Systems ROS Statement: Those systems with pertinent positive or pertinent negative responses have been documented in the HPI. ROS Other: All systems not noted in ROS Statement are negative. Past Medical History Past Medical History: Coronary Artery Disease (CAD), Cancer, GERD/Reflux, Hyperlipidemia, Hypertension, Myocardial Infarction (NH) Additional Past Medical History / Comment(s): Prostate cancer with radiation and hormone treatment, esophageal cancer with surgery, R upper lobe lung cancer with surgery, L carotid artery disease-with surgery, osteoporosis in the past, mild mitral insufficiency/bacterial endocarditis. Last Myocardial Infarction Date:: 2001 History of Any Multi-Drug Resistant Organisms: None Reported Past Surgical History: Heart Catheterization, Heart Catheterization With Stent, Hernia Repair, Prostate Surgery Additional Past Surgical History / Comment(s): 12/29/02 PCI with [address] Morgan in [facility], 2002 L carotid endartectomy, 2009 R upper lobectomy, 2010 esophagectomy at [facility], 2010 hernia repair with mesh, EGD/colonoscopy, bilateral cataract removal with lens implants. Past Anesthesia/Blood Transfusion Reactions: No Reported Reaction Date of Last Stent Placement:: 2001 Past Psychological History: No Psychological Hx Reported Smoking Status: Former smoker - Past Family History Mother Family Medical History: No Reported History Additional Family Medical History / Comment(s): Mother was healthy and lived to be 92 yrs old. Father Additional Family Medical History / Comment(s): Father left home when pt was 6 yrs old. Pt does know that father was an alcoholic and at the age of 59yrs. General Exam Limitations: no limitations General appearance: alert, in no apparent distress Head exam: Present: atraumatic, normocephalic, normal inspection Eye exam: Present: normal appearance, PERRL, EOMI. Absent: scleral icterus, conjunctival injection, periorbital swelling ENT exam: Present: normal exam, normal oropharynx, mucous membranes moist Neck exam: Present: normal inspection, full ROM. Absent: tenderness, meningismus, lymphadenopathy Respiratory exam: Present: normal lung sounds bilaterally. Absent: respiratory distress, wheezes, rales, rhonchi, stridor Cardiovascular Exam: Present: regular rate, normal rhythm, normal heart sounds. Absent: systolic murmur, diastolic murmur, rubs, gallop, clicks Course Vital Signs 05/18/23 05/18/23 05/18/23 10:20 11:48 12:42 Temperature 98.2 F Pulse Rate 73 76 71 Respiratory 16 18 18 Rate Blood Pressure 126/73 143/64 121/57 O2 Sat by Pulse 99 100 98 Oximetry Medical Decision Making - Medical Decision Making Was pt. sent in by a medical professional or institution (, PA, QUALITY ASSURANCE SUPERVISOR FINAL, urgent care, hospital, or group home...) When possible be specific @ -No Did you speak to anyone other than the patient for history (EMS, parent, family, police, friend...)? What history was obtained from this source @ -No Did you review nursing and triage notes (agree or disagree)? Why? @ -I reviewed and agree with nursing and triage notes Were old charts reviewed (outside hosp., previous admission, EMS record, old EKG, old radiological studies, urgent care reports/EKG's, group home records)? Report findings @ -No old charts were reviewed Differential Diagnosis (chest pain, altered mental status, abdominal pain women, abdominal pain men, vaginal bleeding, weakness, fever, dyspnea, syncope, headache, dizziness, GI bleed, back pain, seizure, CVA, palpatations, mental health, musculoskeletal)? @ -Food impaction, esophageal stricture, GERD EKG interpreted by me (3pts min.). @ -None X-rays interpreted by me (1pt min.). @ -None done CT interpreted by me (1pt min.). @ -None done U/S interpreted by me (1pt. min.). @ -None done What testing was considered but not performed or refused? (CT, X-rays, U/S, labs)? Why? @ -None What meds were considered but not given or refused? Why? @ -None Did you discuss the management of the patient with other professionals (professionals i.e. , PA, QUALITY ASSURANCE SUPERVISOR FINAL, lab, RT, psych nurse, social media analyst, science job titles, teacher, health promotion officer, registered nurse hh case manager)? Give summary @ -Discussed the case with Dr. Murcia who can evaluate the patient and perform EGD for removal of food Was smoking cessation discussed for >3mins.? @ -No Was critical care preformed (if so, how long)? @ -No Were there social determinants of health that impacted care today? How? (Homelessness, low income, unemployed, alcoholism, drug addiction, transportation, low edu. Level, literacy, decrease access to med. care, intermediate, rehab)? @ -No Was there de-escalation of care discussed even if they declined (Discuss DNR or withdrawal of care, Hospice)? DNR status @ -No What co-morbidities impacted this encounter? (DM, HTN, Smoking, COPD, CAD, Cancer, CVA, ARF, Chemo, Hep., AIDS, mental health diagnosis, sleep apnea, morbid obesity)? @ -None Was patient admitted / discharged? Hospital course, mention meds given and route, prescriptions, significant lab abnormalities, going to OR and other pertinent info. @ -Discharge patient had food bolus removed with no comp patients patient's awake alert and orientated be discharged in stable condition. Undiagnosed new problem with uncertain prognosis? @ -No Drug Therapy requiring intensive monitoring for toxicity (Heparin, Nitro, Insulin, Cardizem)? @ -No Were any procedures done? @ -No Diagnosis/symptom? @ -Esophageal food impaction Acute, or Chronic, or Acute on Chronic? @ -Acute Uncomplicated (without systemic symptoms) or Complicated (systemic symptoms)? @ -Uncomplicated Side effects of treatment? @ -No Exacerbation, Progression, or Severe Exacerbation? @ -No Poses a threat to life or bodily function? How? (Chest pain, [place], NH, pneumonia, PE, COPD, DKA, ARF, appy, cholecystitis, CVA, Diverticulitis, Homicidal, Suicidal, threat to staff... and all critical care pts) @ -No - Lab Data Lab Results 05/18/23 Range/Units 11:46 POC Glucose (mg/dL) 98 (70-110) mg/dL POC Glu Diesel Truck Driver ID Vladimir Nellie Disposition Clinical Impression: Food impaction of esophagus Disposition: HOME SELF-CARE Instructions (If sedation given, give patient instructions): Moderate Sedation (ED) Additional Instructions: Please return to the Emergency Department if symptoms worsen or any other concerns. Is patient prescribed a controlled substance at d/c from ED?: No Referrals: Jina Mcknight MD [Primary Care Provider] - 1-2 days Annika Parker MD [STAFF PHYSICIAN] - 1-2 days Time of Disposition: 14:55
--- NOTE | 2023-05-18 13:41 | P.CONS ---
History of Present Illness - Reason for Consult Consult date: 05/18/23 esophageal food bolus Requesting physician: Livan Barajas - Chief Complaint dyspagia, steak stuck in throat - History of Present Illness This a pleasant 87-year-old male with a past medical history including coronary artery disease, prostate cancer, lung cancer, esophageal cancer status post esophagectomy, GERD, hyperlipidemia and hypertension who [facility] with complaints of choking and steak and now unable to eat or drink anything. He states he feels that the steak is still stuck in the back of his throat and his chest. He is unable to keep liquids down, he is not even able to swallow his spit and has been gagging and coughing up phlegm. Patient last had a EGD and colonoscopy with Dr. Zelaya on 06/09/2021. Upper endoscopy reported previous esophagectomy with , anastomosis to the proximal esophagus widely patent, minimal gastritis. Colonoscopy was normal. Patient denies any anticoagulation. States that since his esophageal cancer and surgery he has had no difficulty with swallowing, up until yesterday after eating steak. He was given glucagon, nitro, Reglan, and Valium with no improvement in symptoms. Review of Systems REVIEW OF SYSTEMS: CARDIOPULMONARY: No chest pain or shortness of breath. Gastrointestinal: Complaints of food stuck in his throat, associated with inability to eat or drink and unable to swallow saliva.. No nausea or vomiting. No hematemesis, coffee-ground emesis. No rectal bleeding, or melena. GENITOURINARY: No dysuria or hematuria. MUSCULOSKELETAL: Reports normal range of motion. SKIN: No rashes. No jaundice. ENDOCRINE: No chills, fevers. No excessive weight gain or loss. No polydipsia or polyuria. PSYCHIATRIC: Unremarkable. NEUROLOGY: No change in mental status. Denies dizziness, headache. ENT: Vision unremarkable. CONSTITUTIONAL: No recent weight loss. No fever, chills, night sweats. Past Medical History Past Medical History: Coronary Artery Disease (CAD), Cancer, GERD/Reflux, Hyperlipidemia, Hypertension, Myocardial Infarction (MS) Additional Past Medical History / Comment(s): Prostate cancer with radiation and hormone treatment, esophageal cancer with surgery, R upper lobe lung cancer with surgery, L carotid artery disease-with surgery, osteoporosis in the past, mild mitral insufficiency/bacterial endocarditis. Last Myocardial Infarction Date:: 2001 History of Any Multi-Drug Resistant Organisms: None Reported Past Surgical History: Heart Catheterization, Heart Catheterization With Stent, Hernia Repair, Prostate Surgery Additional Past Surgical History / Comment(s): 12/29/02 PCI with [address] Morgan in [facility], 2002 L carotid endartectomy, 2009 R upper lobectomy, 2010 es[facility]ctomy at [facility] , 2010 hernia repair with mesh, EGD/colonoscopy, bilateral cataract removal with lens implants. Past Anesthesia/Blood Transfusion Reactions: No Reported Reaction Date of Last Stent Placement:: 2001 Past Psychological History: No Psychological Hx Reported Smoking Status: Former smoker - Past Family History Mother Family Medical History: No Reported History Additional Family Medical History / Comment(s): Mother was healthy and lived to be 92 yrs old. Father Additional Family Medical History / Comment(s): Father left home when pt was 6 yrs old. Pt does know that father was an alcoholic and at the age of 59yrs. Medications and Allergies Home Medications Medication Instructions Recorded Confirmed Type Vitc/E/Zinc/Copper/Lutein/Zeax 1 cap PO BID 06/05/21 05/18/23 History [Icaps Areds2 Tablet] Alive Men's Multivitamin 2 tab PO DAILY 05/18/23 05/18/23 History Digestive Enzymes 1 cap PO BID 05/18/23 05/18/23 History Nitroglycerin Sl Tabs [Nitrostat] 0.4 mg SL Q5M PRN 05/18/23 05/18/23 History Omeprazole 40 mg PO DAILY 05/18/23 05/18/23 History Allergies Allergy/AdvReac Type Severity Reaction Status Date / Time No Known Allergies Allergy Verified 05/18/23 12:25 Physical Exam Vitals: Vital Signs Temp Pulse Resp BP Pulse Ox 05/18/23 12:42 71 18 121/57 98 05/18/23 11:48 76 18 143/64 100 05/18/23 10:20 98.2 F 73 16 126/73 99 Intake and Output 05/17/23 05/18/23 05/18/23 22:59 06:59 14:59 Other: Weight 54.885 kg General appearance: The patient is alert, oriented, appears in no acute distress. HET: Head is normocephalic and atraumatic. Conjunctiva pink. Sclera anicteric. Neck: Supple without lymphadenopathy. Trachea midline. Heart: S1 S2. Regular rate and rhythm. Lungs: Clear to auscultation. Abdomen: Soft, nontender, nondistended with bowel sounds. No guarding or rigidity. Skin: No rashes. No jaundice. Extremities: Normal skin color and turgor. No pedal edema. Neurological: No focal deficits. Alert and oriented x3. Assessment and Plan (1) Dysphagia Narrative/Plan: 87-year-old who presented to emergency department with difficulty eating or drinking and feeling as though there is food stuck in the back of his throat. Patient was eating steak yesterday he states that it felt like it didn't go down and since that time he has been unable to eat or drink anything. Feels like it is stuck and not even his saliva will go down. He was given glucagon, nitro, Valium and Reglan with no improvement in symptoms. He continues to spit up his saliva. He does have a history of esophageal cancer status post esophagectomy. Last EGD done in [address] Zelaya with patency and an anastomosis. Likely patient has esophageal food bolus and will proceed with EGD. Current Visit: Yes Status: Acute Code(s): R13.10 - DYSPHAGIA, UNSPECIFIED SNOMED Code(s): 66426036 (2) History of esophageal cancer Current Visit: Yes Status: Acute Code(s): Z85.01 - PERSONAL HISTORY OF MALIGNANT NEOPLASM OF ESOPHAGUS SNOMED Code(s): 184440392 (3) Coronary artery disease Current Visit: Yes Status: Acute Code(s): I25.10 - ATHSCL HEART DISEASE OF [place] CORONARY ARTERY W/O ANG PCTRS SNOMED Code(s): 10459233 Plan: 1. Keep nothing by mouth 2. Will plan for EGD with possible foreign body removal, procedure discussed with patient and his including risks and benefits. Patient agreeable to proceed. 3. Further recommendations forthcoming per audiology doctor Thank you for this consultation. Dr. Florence Parker I agree with the dictator's note, documented as a scribe by Ava Echols.
[2023-05-18] MEDS ORDERED: PROPOFOL 10 MG/ML 20 ML VIAL IV ONE (14:00)
[2023-05-18 15:14] VITALS: BP 139/53; PULSE 78
--- NOTE | 2023-05-18 22:00 | PCN ---
PROCEDURE NOTE REQUESTING PHYSICIAN: Dr. Jina Mcknight BRIEF HISTORY: The patient is an 87-year-old white male who came to the emergency room with acute food impaction. He was eating a piece of steak yesterday morning and could not swallow any further. He came in to the emergency room this morning. He is scheduled for an emergency upper endoscopy to evaluate further. The patient has history of esophageal cancer for which he underwent distal esophagectomy with gastric pull-through few years ago. Last EGD with Dr. Zelaya in 2020 showed patent esophageal anastomosis. PROCEDURE PERFORMED: Foreign body removal. PREOPERATIVE DIAGNOSIS: Acute food impaction. ANESTHESIA: IV sedation per Anesthesia. DESCRIPTION OF PROCEDURE: After informed consent was obtained from the patient, the procedure was performed in the emergency room. IV conscious sedation was administered by Anesthesia under continuous monitoring. Initially, the Olympus CF180 video endoscope was inserted into the mouth, esophagus, and intubated without any difficulty and immediately in the proximal cervical esophagus, there was a large piece of meat that was lodged. At this time using a Stark Net, I was able to retrieve several pieces of meat out of the mouth, and after doing this for close to 10 minutes, I was able to visualize the anastomosis. There was a piece of meat that was impacted in the anastomosis that was also removed with the Stark Net and following this, I was able to advance the scope into the stomach and duodenum. Bulb and second part of the duodenum appeared normal. The scope was then withdrawn to the stomach, adequately insufflated with air and upon careful examination, antrum and body appeared normal. There was evidence of gastric pull- through noted. The esophageal anastomosis was located at 22 cm from the incisors. It appeared slightly narrowed and there was some circumferential erythema noted, rest of the proximal cervical esophagus appeared normal and the patient tolerated the procedure well. IMPRESSION: 1. Mild narrowing of the esophageal anastomosis located at 20 cm from the anal verge with food bolus impaction, status post removal as described above. 2. History of distal esophagectomy with gastric pull-through surgery. RECOMMENDATIONS: Findings of this examination were discussed with the patient as well as his . He was advised to remain on soft diet and cut meat into small pieces. Continue with his current medications. Follow up in office in 2-3 weeks. MMODL / IJN: [id number] /
== END 2023-05-18 15:14 | disposition home or self-care (01) ==
LOC: EC 10:18
DX: T18.128A Food in esophagus causing other injury, initial encounter (principal); I25.10 Atherosclerotic heart disease of native coronary artery without angina pectoris; K21.9 Gastro-esophageal reflux disease without esophagitis; I10 Essential (primary) hypertension; I25.2 Old myocardial infarction; Z87.891 Personal history of nicotine dependence; Z79.899 Other long term (current) drug therapy
CPT/HCPCS: 36415; 43247; 99284; 96374; 96375 ×2; 96376; 96361; J1610; J2765; J3360; J2704

== ENCOUNTER → 2023-12-16 | Outpatient (CLI) | payer MEDICARE ==
--- NOTE | 2023-12-16 10:35 | US ---
EXAMINATION TYPE: US venous doppler duplex LE LT DATE OF EXAM: 12/16/2023 10:20 AM COMPARISON: NONE CLINICAL INDICATION: Male, 88 years old with history of LLE;M79.605 PAIN IN LEFT LEG; 6 dasy ago joseph ent feel and injured lower left leg SIDE PERFORMED: Left TECHNIQUE: The lower extremity deep venous system is examined utilizing real time linear array sonog pk with graded compression, doppler sonography and color-flow sonography. VESSELS IMAGED: Common Femoral Vein Deep Femoral Vein Greater Saphenous Vein * Femoral Vein Popliteal Vein Small Saphenous Vein * Proximal Calf Veins (* superficial vessels) Left Leg: Negative for DVT There are several complex fluid collections noted around the injured area at the posterior calf, late ral and medial knee. There is also edema noted at the distal calf The largest fluid collection measures 5.2x1.0x1.4cm IMPRESSION: Grayscale, color doppler, spectral doppler imaging performed of the deep veins of the lo wer extremities. There is normal flow, compressibility, vascular waveforms.
== END | disposition home or self-care (01) ==
LOC: RADUSWWP 09:45
PROVIDERS: ATTEND Family Medicine
DX: M79.605 Pain in left leg (principal); R22.42 Localized swelling, mass and lump, left lower limb; W01.0XXA Fall on same level from slipping, tripping and stumbling without subsequent striking against object, initial encounter